=== PATIENT | female | born 1930 | race Caucasian/White ===

== ENCOUNTER → 2016-10-11 | Outpatient (CLI) | payer OTHER ==
[~2016-10-11] MED LIST: IOPAMIDOL (ISOVUE-300) 100 ML BTL IV ONE
--- NOTE | 2016-10-11 13:26 | CT ---
Contrast Enhanced CT Scan of the Abdomen and Pelvis Clinical History: 86-year-old female with lower abdominal pain. Rule out diverticulitis. ICD 10 Diagnostic Code: R10.30. Technique: At Dr. Yanez's request, oral contrast was not administered. Following the uncomplicated i ntravenous administration of 90 mL of Isovue-300, a multidetector helical CT scan was obtained from t he lung bases inferiorly through the proximal femora, with images reformatted at 5.00 and 1.25 mm inc rements, and reviewed at a variety of window and level settings. Parasagittal and paracoronal reconst ructed images are reviewed on the workstation. The DFOV is 40.1 cm. Dose reduction techniques were ut ilized. Comparison Study: None. Findings: Contrast-Enhanced CT Scan of the Abdomen: There is fibrous capsular calcification associated with the caudal portion of a right augmentation mammoplasty. Mitral valvular calcification is seen. The visua lized cardiac chambers and pericardium are otherwise unremarkable. The visualized lung bases are nota ble for some posterior dependent changes. There is a small calcified granuloma in the posteromedial l eft lower lobe. There is some linear scarring in the inferomedial lingula. The gallbladder is moderat rozina distended and there is some minimal dependent density seen on series 3, image 129 which could rep resent microlithiasis or gallbladder sludge. If there is further concern, sonography could be conside red. The liver, spleen, bile ducts, pancreas, adrenal glands, and the kidneys are normal in appearanc e. The aorta tapers normally with some atherosclerotic calcification, and the IVC is normal in calibe r. There is no ascites or free air. The CT appearance of small bowel is unremarkable. There are a few scattered descending colon and more numerous sigmoid colon diverticula, and there is some inflammato ry stranding noted along the distal portion of the descending colon to the level of the sigmoid colon . These features are identified on axial series 3, images 149-211, and are also demonstrated on coron al series 601, image 18. Contrast-Enhanced CT Scan of the Pelvis: As was mentioned above, there is evidence for distal descend ing and sigmoid colon diverticulitis. There is no diverticular abscess, nor is there any free fluid. Several phleboliths are seen in the caudal pelvis. There is atherosclerotic calcification of the righ t external iliac and the right common femoral artery. There are no masses, free fluid, or free air. T he bladder has a normal contour. The uterus is absent. There is no adnexal mass. There is normal enha ncement of the vasculature. The soft tissues are normal in appearance. Skeletal System: There is a thoracolumbar scoliosis, with multilevel advanced degenerative disk disea se from L1-L2 through L5-S1. The patient has had ORIF of the right femur, with some beam hardening ar tifact. Impression: 1. Distal descending colon and sigmoid colon diverticulitis, with no evidence of pericolonic abscess, free fluid, or pneumoperitoneum. 2. Punctate dependent densities in the gallbladder could represent sludge or microlithiasis. If there is further clinical concern, sonography could be considered. Results were discussed with Dr. Rashida Yanez. A Document Only message has been documented for RASHIDA YANEZ in the [facility] system on 10/11/2016 13:22, Message ID [id number].
== END ==
LOC: FIMAGING 11:46
PROVIDERS: ATTEND Family Medicine
DX: K57.32 Diverticulitis of large intestine without perforation or abscess without bleeding (principal); K87 Disorders of gallbladder, biliary tract and pancreas in diseases classified elsewhere; R10.30 Lower abdominal pain, unspecified
CPT/HCPCS: 74177; Q9967

== ENCOUNTER → 2017-04-22 | Outpatient (CLI) | payer OTHER | LOC: BHFA 13:30 | PROVIDERS: ATTEND Internal Medicine Cardiovascular Disease | DX: I25.10 Atherosclerotic heart disease of native coronary artery without angina pectoris (principal); E78.5 Hyperlipidemia, unspecified; R20.2 Paresthesia of skin ==

== ENCOUNTER → 2017-09-20 | Outpatient (CLI) | payer OTHER | LOC: BMCIMAGING 13:47 | PROVIDERS: ATTEND Internal Medicine | DX: M79.651 Pain in right thigh (principal); Z98.1 Arthrodesis status ==

== ENCOUNTER → 2017-11-23 | Outpatient (CLI) | payer OTHER | LOC: FCPNEURO 20:00 | PROVIDERS: ATTEND Internal Medicine Sleep Medicine | DX: G47.33 Obstructive sleep apnea (adult) (pediatric) (principal) ==

== ENCOUNTER 2018-04-09 16:44 | Emergency (ER) | payer OTHER ==
--- NOTE | 2018-04-09 17:07 | EDPHY ---
H & P Time Seen by Provider: 04/09/18 17:06 HPI/ROS: Chief complaint. Decrease of sight in left eye HPI. 88-year-old female presents with 2 day history of decreased vision in the left eye. She knows while watching TV 2 days ago that she felt like of film was over the left eye. It seems to have gotten worse though it does seem to wax and wane somewhat. Basically the patient can see colors and shapes. During our interview she could not tell the time on the clock at 8 ft but could see fine with her right eye. She has no eye pain. She had left cataract surgery 10 years ago. She has otherwise no symptoms including headache or face pain or eye pain. Again right eye is normal. No similar symptoms previously. ROS Constitutional. no fever/chills, no weakness Eyes. Decreased vision left eye ENT. no sore throat, no nasal drainage Cardiovascular. no chest pain Respiratory. no shortness of breath, no cough Abdominal. no abdominal pain, no nausea/vomiting, no diarrhea . no problems urinating MS. no calf pain/swelling, no neck/back pain, no joint pain Skin. no rash Lymph. no swollen glands Neuro. no headache, no dizziness, no difficulty walking or with speech Past Medical/Surgical History: Hypertension Social History: Single, nonsmoker, no alcohol Smoking Status: Never smoked Physical Exam: General Appearance: Alert well-developed female mild distress vital signs are stable Eyes: Pupils equal and round no pallor or injection. Funduscopic exam appears normal. There is no restriction of extraocular movements. Maybe slight decreased visual field in the lateral eye. Patient unable to count my fingers at 2 ft distance. She says she sees a nome ENT, Mouth: Mucous membranes are moist. Respiratory: There are no retractions, lungs are clear to auscultation. Cardiovascular: Regular rate and rhythm. Gastrointestinal: Abdomen is soft and nontender, no masses, bowel sounds normal. Neurological: Awake and alert, sensory and motor exams grossly normal. Skin: Warm and dry, no rashes. Musculoskeletal: Neck is supple nontender. Extremities symmetrical, full range of motion. Psychiatric: Patient is oriented X 3, there is no agitation. Constitutional: Initial Vital Signs Temperature (C) 36.7 C 04/09/18 16:51 Heart Rate 94 04/09/18 16:51 Respiratory Rate 16 04/09/18 16:51 Blood Pressure 149/74 H 04/09/18 16:51 O2 Sat (%) 96 04/09/18 16:51 O2 Delivery Mode Room Air Allergies/Adverse Reactions: sensitivity to pain meds .NKDA Allergy (Uncoded 04/09/18 16:56) Medical Decision Making Procedures: Intra-ocular pressure left eye is 18 ED Course/Re-evaluation: I consulted and discussed the case with Dr. Huerta on-call for Ophthalmology. She recommends no imaging studies at this point. She agrees with lab work. She will see the patient in the office tomorrow I have re-evaluated the patient. I looked in her eye again. I do not see the retina pathology in terms of pallor or hyperemia. I do not see floaters. She has pupillary reflex. This really appears to be a normal eye exam. I consulted and discussed the case again at 6:[address] Huerta to review labs and ensure appropriate follow-up. She feels symptoms have been present for 2-3 days and appropriate follow-up tomorrow in the office is reasonable Differential Diagnosis: I have considered retinal detachment, macular degeneration, giant cell arteritis. I considered glaucoma though her pressure is normal. - Data Points Laboratory Results: Laboratory Results 04/09/18 17:22 04/09/18 17:22 04/09/18 04/09/18 17:22 17:22 WBC 8.71 10^3/uL 10^3/uL (3.80-9.50) RBC 4.11 10^6/uL L 10^6/uL (4.18-5.33) Hgb 13.4 g/dL g/dL (12.6-16.3) Hct 39.9 % % (38.0-47.0) MCV 97.1 fL fL (81.5-99.8) MCH 32.6 pg pg (27.9-34.1) MCHC 33.6 g/dL g/dL (32.4-36.7) RDW 13.9 % % (11.5-15.2) Plt Count 182 10^3/uL 10^3/uL (150-400) MPV 10.7 fL fL (8.7-11.7) Neut % (Auto) 45.7 % % (39.3-74.2) Lymph % (Auto) 32.1 % % (15.0-45.0) [place] % (Auto) 13.9 % H % (4.5-13.0) Eos % (Auto) 7.3 % % (0.6-7.6) Baso % (Auto) 0.8 % % (0.3-1.7) Nucleat RBC Rel Count 0.0 % % (0.0-0.2) Absolute Neuts (auto) 3.97 10^3/uL 10^3/uL (1.70-6.50) Absolute Lymphs (auto) 2.80 10^3/uL 10^3/uL (1.00-3.00) Absolute Monos (auto) 1.21 10^3/uL H 10^3/uL (0.30-0.80) Absolute Eos (auto) 0.64 10^3/uL H 10^3/uL (0.03-0.40) Absolute Basos (auto) 0.07 10^3/uL 10^3/uL (0.02-0.10) Absolute Nucleated RBC 0.00 10^3/uL 10^3/uL (0-0.01) Immature Gran % 0.2 % % (0.0-1.1) Immature Gran # 0.02 10^3/uL 10^3/uL (0.00-0.10) ESR 28 MM/HR MM/HR (0-30) Sodium 141 mEq/L mEq/L (135-145) Potassium 4.0 mEq/L mEq/L (3.3-5.0) Chloride 110 mEq/L mEq/L (97-110) Carbon Dioxide 24 mEq/l mEq/l (22-31) Anion Gap 7 mEq/L L mEq/L (8-16) BUN 13 mg/dL mg/dL (7-23) Creatinine 0.7 mg/dL mg/dL (0.6-1.0) Estimated GFR > 60 Glucose 103 mg/dL H mg/dL (70-100) Calcium 9.1 mg/dL mg/dL (8.5-10.4) Departure - Departure Disposition: Home, Routine, Self-Care Clinical Impression: Decreased peripheral vision of left eye Condition: Good Instructions: Blurred Vision (ED) Additional Instructions: Call in the morning tomorrow and make a follow-up appointment for tomorrow with Dr. Huerta for further vision and eye evaluation. [phone] Return sooner for worsening symptoms. Referrals: So Mcdonnell MD [Primary Care Provider] - As per Instructions Radha Huerta MD [Non Staff Provider (MD)] - As per Instructions
[2018-04-09 17:40] LABS: PLATELET COUNT 182 10^3/uL (150-400)
[2018-04-09 19:09] VITALS: BP 130/81
== END 2018-04-09 19:07 | disposition home or self-care (01) ==
DX: H53.452 Other localized visual field defect, left eye (principal); I10 Essential (primary) hypertension

== ENCOUNTER → 2019-01-19 | Outpatient (CLI) | payer OTHER | LOC: BMCIMAGING 08:06 | PROVIDERS: ATTEND Internal Medicine | DX: R10.84 Generalized abdominal pain (principal) ==